=== PATIENT | female | born 1940 | race Caucasian/White ===

== ENCOUNTER 2016-11-14 12:02 | Emergency (ER) | payer MEDICARE, OTHER ==
[~2016-11-14 12:02] MED LIST: CIPR1TAB50 PO
[2016-11-14 12:14] VITALS: BP 142/79; PULSE 78; RESP 16; TEMP 98.3
[2016-11-14 12:27] LABS: BLOOD, URINE NEG (NEG); GLUCOSE,URINE NEG (NEG); KETONE, URINE 15 mg/dL (NEG); NITRITE,URINE NEG (NEG); PH, URINE 5.5 (5.0-8.5)
[2016-11-14 12:33] LABS: URINE COLOR YELLOW (YELLW/STRAW)
[2016-11-14 12:34] LABS: RBC, URINE 0-3 /hpf (0-3); SQUAMOUS EPITHELIAL CELL URINE 0-5 /hpf (0-5); WBC, URINE 0-2 /hpf (0-5)
[2016-11-14 12:35] LABS: COMMENT (UR) CULT NOT INDICATED; CULTURE IF INDICATED CULT NOT INDICATED
--- NOTE | 2016-11-14 12:50 | PD ---
HPI Chief Complaint: GI Complaint Time Seen by Provider: 12:45 Travel History International Travel<30 days: No Contact w/Intl Traveler<30days: No Traveled to known affect area: No History of Present Illness HPI 76-year-old female with history of frequent UTIs, presents to the ER for several days history of vaginal irritation, dysuria, thinks that she has UTI. She denies any fevers, nausea, vomiting, vaginal discharge, or any other symptoms. Modifying Factors: None Associated Signs & Symptoms: Vaginal irritation, dysuria Risk Factors: Frequent UTIs PFSH Past Medical History Arthritis: Yes Blood Disorders: No Depression: Yes Cardiovascular Problems: No Diminished Hearing: No Endocrine: No Genitourinary: Yes (FREQUENT UT'S AND LOWER ABD CRAMPING) Immune Disorder: No Neurologic: No Psychiatric: No Respiratory: Yes (CHILDHOOD ASTHMA) Influenza Vaccination: No ?: Not Past Surgical History Abdominal Surgery: Yes (POLYPS REMOVED FROM COLON) Section: Yes Eye Surgery: Yes (JOSE R CATARACTS) Gynecologic Surgery: Yes () Hysterectomy: Yes Other Surgery: Yes Social History Alcohol Use: Yes (WINE EVERY NIGHT ) Tobacco Use: No Substance Use: No Allergies-Medications (Allergen,Severity, Reaction): Coded Allergies: Cultivated Oat Pollen (Verified Allergy, Mild, nunny nose, 11/14/16) Dust (Verified Allergy, Mild, runny nose, 11/14/16) Reported Meds & Prescriptions Reported Meds & Active Scripts Active Active Prescriptions or Reported Medications Unobtainable Review of Systems Except as stated in HPI: all other systems reviewed are Neg Physical Exam Narrative GENERAL: Well-developed elderly white female patient currently in no acute distress. Awake and oriented 3. SKIN: Focused skin assessment warm/dry. HEAD: Atraumatic. Normocephalic. EYES: Pupils equal and round. No scleral icterus. No injection or drainage. ENT: No nasal bleeding or discharge. Mucous membranes pink and moist. NECK: Trachea midline. No JVD. CARDIOVASCULAR: Regular rate and rhythm. No murmur appreciated. RESPIRATORY: No accessory muscle use. Clear to auscultation. Breath sounds equal bilaterally. GASTROINTESTINAL: Abdomen soft, mild pelvic tenderness without guarding or rebound, nondistended. Hepatic and splenic margins not palpable. Benign. GENITOURINARY: Normal external genitalia without lesions or erythema, notable for significant dryness and atrophy, speculum exam was deferred due to severe atrophy of the vaginal opening and discomfort with exam. Vaginal vault without blood or drainage. MUSCULOSKELETAL: No obvious deformities. No clubbing. No cyanosis. No edema. NEUROLOGICAL: Awake and alert. No obvious cranial nerve deficits. Motor grossly within normal limits. Normal speech. PSYCHIATRIC: Appropriate mood and affect; insight and judgment normal. Data Data Last Documented VS Vital Signs Date Time Temp Pulse Resp B/P Pulse Ox O2 Delivery O2 Flow Rate FiO2 11/14/16 12:14 98.3 78 16 142/79 Orders Urinalysis - C+S If Indicated (11/14/16 12:17) Wet Prep Profile (11/14/16 12:45) Labs Laboratory Tests Test 11/14/16 12:20 Urine Color YELLOW Urine Turbidity CLEAR Urine pH 5.5 Urine Specific [place] 1.009 Urine Protein NEG mg/dL Urine Glucose (UA) NEG mg/dL Urine Ketones 15 mg/dL Urine Occult Blood NEG Urine Nitrite NEG Urine Bilirubin NEG Urine Leukocyte Esterase TRACE Urine RBC 0-3 /hpf Urine WBC 0-2 /hpf Urine Squamous Epithelial 0-5 /hpf Cells Microscopic Urinalysis Comment CULT NOT INDICATED MDM Medical Decision Making Medical Screen Exam Complete: Yes Emergency Medical Condition: Yes Medical Record Reviewed: Yes Differential Diagnosis UTI versus vaginitis Narrative Course UA shows no signs of UTI. However, I suspect that she has some hormonal related changes with significant vaginal dryness and atrophy. At this point, my plan would be to treat her for possible underlying vaginitis and symptomatic relief with lubricants and have her follow-up with PATIENT BILLER regarding this issue. Return for any worsening in symptoms as needed. The plan has discussed with her and she states understanding. Diagnosis Primary Impression: Atrophic vaginitis Med/Other Pt SpecificInfo: Prescription(s) given Scripts Benzocaine-Resorcinol Vaginal (Vagisil Maximum Strength)20-3% Cream1 Inch VAGINAL TID PRN (PAIN) #1 TUBE Ref 0 Prov:Beth Shook MD 11/14/16 Metronidazole (Flagyl)500 Mg Oza246 Mg PO TID 7 Days Ref 0 Prov:Beth Shook MD 11/14/16 Disposition: 01 DISCHARGE HOME Condition: Stable Beth Shook MD Nov 14, 2016 12:50
[2016-11-14] MEDS ORDERED: METR-1 PO (13:10)
[2016-11-14] MEDS ORDERED: [UNRECOGNIZED DRUG - CODE] VAGINAL (13:10)
== END 2016-11-14 13:23 | disposition home or self-care (01) ==
LOC: PHED 12:02
DX: N95.2 Postmenopausal atrophic vaginitis (principal); Z87.440 Personal history of urinary (tract) infections
CPT/HCPCS: 81001; 87210; 99283

== ENCOUNTER 2017-02-09 11:15 | Emergency (ER) | payer MEDICARE, OTHER ==
[~2017-02-09] VITALS: Ht 170.2 cm; Wt 60.8 kg
[~2017-02-09 11:15] MED LIST changes: -CIPR1TAB50 PO; +METR-1 PO; +[UNRECOGNIZED DRUG - CODE] VAGINAL
[2017-02-09 11:18] VITALS: BP 166/77; PULSE 84; RESP 16; TEMP 98.5; O2SAT 97
[2017-02-09] MEDS ORDERED: VITA250T3 PO (11:48)
[2017-02-09] MEDS ORDERED: LEVO88TA2 PO (11:48)
[2017-02-09] MEDS ORDERED: VITA250T25 PO (11:48)
--- NOTE | 2017-02-09 11:54 | PD ---
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 States she gets 1 every year or so. She started having burning urination last night with some increased frequency. Denies any vaginal irritation bleeding discharge or lesions. No nausea vomiting. No fevers or chills. States she has some sort of cystoscopy procedure for UTIs in the past. She's done better since then. No other complaints. History Past Medical History Narrative Medical Hypothyroidism Social History Alcohol Use: Yes (WINE EVERY NIGHT ) Tobacco Use: No Allergies-Medications (Allergen,Severity, Reaction): Coded Allergies: grass pollen (Unverified Allergy, Mild, nunny nose, 02/09/17) house dust (Unverified Allergy, Mild, runny nose, 02/09/17) Reported Meds & Prescriptions Reported Meds & Active Scripts Active Reported Vitamin C (Ascorbic Acid) 250 Mg Tab 250 Mg PO Vitamin B-1 (Thiamine HCl) 250 Mg Tab 250 Mg PO DAILY Levothyroxine (Levothyroxine Sodium) 88 Mcg Tab 88 Mcg PO DAILY Review of Systems Except as stated in HPI: all other systems reviewed are Neg Physical Exam Narrative GENERAL: Well-appearing 76-year-old woman, no acute distress. SKIN: Focused skin assessment warm/dry. HEAD: Atraumatic. Normocephalic. CARDIOVASCULAR: Regular rate and rhythm. No murmur appreciated. RESPIRATORY: No accessory muscle use. Clear to auscultation. Breath sounds equal bilaterally. GASTROINTESTINAL: Abdomen soft, non-tender, nondistended. Hepatic and splenic margins not palpable. MUSCULOSKELETAL: No obvious deformities. Data Data Last Documented VS Vital Signs Date Time Temp Pulse Resp B/P (MAP) Pulse Ox O2 Delivery O2 Flow Rate FiO2 02/09/17 11:18 98.5 84 16 166/77 (106) 97 Orders Orders Urinalysis - C+S If Indicated (02/09/17 11:18) Urine Culture (02/09/17 11:50) Labs Laboratory Tests Test 02/09/17 11:50 Urine Collection Type CLEAN CATCH Urine Color YELLOW Urine Turbidity SLIGHT Urine pH 6.0 Urine Specific [place] 1.019 Urine Protein NEG mg/dL Urine Glucose (UA) NEG mg/dL Urine Ketones NEG mg/dL Urine Occult Blood NEG Urine Nitrite NEG Urine Bilirubin NEG Urine Leukocyte Esterase SMALL Urine WBC 9-14 /hpf Urine Squamous Epithelial Cells 0-5 /hpf Urine Amorphous Sediment FEW Urine Bacteria FEW /hpf Microscopic Urinalysis Comment CULTURE INDICATED Urine Collection Time 1150 MDM Medical Decision Making Medical Screen Exam Complete: Yes Emergency Medical Condition: Yes Interpretation(s) UA with pyuria suggestive of UTI Differential Diagnosis Cystitis, UTI pathology, uterine ovarian pathology, renal lithiasis, appendicitis, other Narrative Course Medical decision making 76-year-old woman with UTI symptoms. We'll check urine, treat if positive. Diagnosis Primary Impression: UTI (urinary tract infection) Additional Instructions: Take antibiotics as prescribed. Follow-up with her primary doctor in the next 2-4 days. Return to the emergency department for any new or worsening symptoms. Med/Other Pt SpecificInfo: Prescription(s) given Scripts Cephalexin (Keflex) 500 Mg Capsule 500 MG PO TID for Infection for 10 Days, CAP 0 Refills Prov: Jeremías Nielsen MD 02/09/17 Disposition: 01 DISCHARGE HOME Condition: Stable Jeremías Nielsen MD Feb 09, 2017 11:54
[2017-02-09 11:57] LABS: BLOOD, URINE NEG (NEG); GLUCOSE,URINE NEG (NEG); KETONE, URINE NEG (NEG); NITRITE,URINE NEG (NEG)
[2017-02-09 12:01] LABS: METHOD OF COLLECTION CLEAN CATCH; URINE COLOR YELLOW (YELLW/STRAW)
[2017-02-09 12:02] LABS: BACTERIA, URINE FEW /hpf; COMMENT (UR) CULTURE INDICATED; COMMENT2 (UR) MUCOUS PRESENT; CULTURE IF INDICATED CULTURE INDICATED; SQUAMOUS EPITHELIAL CELL URINE 0-5 /hpf (0-5)
[2017-02-09] MEDS ORDERED: CEPH-460 PO (12:33)
[2017-02-09 12:48] VITALS: BP 127/65
== END 2017-02-09 12:49 | disposition home or self-care (01) ==
LOC: PHED 11:15
DX: R30.0 Dysuria (principal); E03.9 Hypothyroidism, unspecified; Z87.440 Personal history of urinary (tract) infections
CPT/HCPCS: 81001; 87077; 87086; 87186; 99283

== ENCOUNTER 2017-05-10 13:19 | Emergency (ER) | payer MEDICARE, OTHER ==
[~2017-05-10] VITALS: Ht 167.6 cm; Wt 55.0 kg
[~2017-05-10 13:19] MED LIST changes: +CEPH-460 PO; +LEVO88TA2 PO; -METR-1 PO; +VITA250T25 PO; +VITA250T3 PO; -[UNRECOGNIZED DRUG - CODE] VAGINAL
[2017-05-10 13:35] VITALS: BP 173/83; PULSE 119; RESP 22; TEMP 98.8; O2SAT 97
[2017-05-10 14:31] LABS: AUTOMATED NEUTROPHIL # 7.2 TH/MM3 (1.8-7.7); BASOPHIL % 0.2 % (0.0-2.0); EOSINOPHIL # 0.2 TH/MM3 (0-0.4); EOSINOPHIL % 1.8 % (0.0-4.0); HEMATOCRIT 42.9 % (35.0-46.0); HEMOGLOBIN 14.4 GM/DL (11.6-15.3); LYMPH % 19.3 % (9.0-44.0); MEAN CELL VOLUME 97.3 FL (80.0-100.0); MEAN CORPUSCULAR HEMOGLOBIN 32.7 PG (27.0-34.0); MEAN CORPUSCULAR HGB CONC 33.6 % (32.0-36.0); MEAN PLATELET VOLUME 9.8 FL (7.0-11.0); MONO % 9.7 % (0.0-8.0); PLATELET COUNT 237 TH/MM3 (150-450); RED BLOOD COUNT 4.41 MIL/MM3 (4.00-5.30); RED CELL DISTRIBUTION WIDTH 14.2 % (11.6-17.2); WHITE BLOOD COUNT 10.5 TH/MM3 (4.0-11.0)
[2017-05-10 14:45] LABS: ALBUMIN 4.5 GM/DL (3.4-5.0); AST (GOT) 20 U/L (15-37); BICARBONATE 22.2 MEQ/L (21.0-32.0); BLOOD UREA NITROGEN 12 MG/DL (7-18); CALCIUM 9.2 MG/DL (8.5-10.1); CHLORIDE 103 MEQ/L (98-107); CREATININE 0.96 MG/DL (0.50-1.00); GLOMERULAR FILTRATION RATE 57 ML/MIN (>89); GLUCOSE,RANDOM 140 MG/DL (74-106); SODIUM (NA) 136 MEQ/L (136-145)
[2017-05-10 14:46] LABS: ALT (GPT) 20 U/L (10-53)
[2017-05-10 14:48] LABS: ALKALINE PHOSPHATASE 115 U/L (45-117); TOTAL BILIRUBIN ADULT 0.7 MG/DL (0.2-1.0); TOTAL PROTEIN 8.5 GM/DL (6.4-8.2)
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
== END 2017-05-10 15:28 | disposition home or self-care (01) ==
LOC: NEPD 13:19
DX: R63.0 Anorexia (principal); M19.90 Unspecified osteoarthritis, unspecified site; F32.9 Major depressive disorder, single episode, unspecified; E07.9 Disorder of thyroid, unspecified; Z79.899 Other long term (current) drug therapy
CPT/HCPCS: 80053; 80307; 85025; 99283

== ENCOUNTER 2017-05-21 08:21 | Emergency (ER) | payer MEDICARE, OTHER ==
[~2017-05-21] VITALS: Ht 167.6 cm; Wt 58.0 kg
[2017-05-21 08:33] VITALS: BP 132/80; PULSE 80; RESP 16; TEMP 98; O2SAT 99
[2017-05-21 08:44] LABS: BLOOD, URINE NEG (NEG); GLUCOSE,URINE NEG (NEG); KETONE, URINE 15 mg/dL (NEG); NITRITE,URINE NEG (NEG); PH, URINE 5.5 (5.0-8.5); URINE LEUKOCYTE ESTERASE NEG (NEG)
[2017-05-21 08:59] LABS: BILIRUBIN, URINE NEG (NEG)
[2017-05-21 09:00] LABS: SQUAMOUS EPITHELIAL CELL URINE 0-5 /hpf (0-5); URINE COLOR YELLOW (YELLW/STRAW)
[2017-05-21] MEDS ORDERED: PHEN0.4T PO (09:41)
--- NOTE | 2017-05-21 09:41 | PD ---
HPI Chief Complaint: Complaint Time Seen by Provider: 09:25 Travel History International Travel<30 days: No Contact w/Intl Traveler<30days: No Traveled to known affect area: No History of Present Illness HPI This 76-year-old female is complaining of burning with urination. She has had recurrent urinary tract infections. She is also been diagnosed with interstitial cystitis. She went to [facility]. She describes a urethral dilatation after which she did well for a while. Her symptoms have recurred the last few days. She is not aware of any fever or chills. Denies any external irritation PFSH Past Medical History Hx Anticoagulant Therapy: No Arthritis: Yes Blood Disorders: No Depression: Yes Cardiovascular Problems: No Diabetes: No Diminished Hearing: No Endocrine: No Genitourinary: Yes (frequent UTIs) Immune Disorder: No Implanted Vascular Access Dvce: No Neurologic: No Psychiatric: No Thyroid Disease: Yes ?: Not Past Surgical History Abdominal Surgery: Yes (colon polyps removed) Section: Yes (x 2 ) Eye Surgery: Yes (jude cataracts) Gynecologic Surgery: Yes () Hysterectomy: Yes Tonsillectomy: Yes Other Surgery: Yes Social History Alcohol Use: Yes (WINE EVERY NIGHT ) Tobacco Use: No Substance Use: No Allergies-Medications (Allergen,Severity, Reaction): Coded Allergies: grass pollen (Unverified Allergy, Mild, nunny nose, 02/09/17) house dust (Unverified Allergy, Mild, runny nose, 02/09/17) Reported Meds & Prescriptions Reported Meds & Active Scripts Active Reported Vitamin C (Ascorbic Acid) 250 Mg Tab 250 Mg PO Vitamin B-1 (Thiamine HCl) 250 Mg Tab 250 Mg PO DAILY Levothyroxine (Levothyroxine Sodium) 88 Mcg Tab 88 Mcg PO DAILY Review of Systems General / Constitutional: No: Fever, Chills HENT: No: Headaches Gastrointestinal: No: Nausea, Vomiting Genitourinary: Positive: Dysuria, No: Hematuria Neurologic: No: Weakness, Dizziness Psychiatric: No: Anxiety Endocrine: No: Heat Intolerance Hematologic/Lymphatic: No: Easy Bruising Physical Exam Narrative GENERAL: Well-developed female SKIN: Focused skin assessment warm/dry. HEAD: Atraumatic. Normocephalic. EYES: Pupils equal and round. No scleral icterus. No injection or drainage. ENT: No nasal bleeding or discharge. Mucous membranes pink and moist. NECK: Trachea midline. No JVD. GASTROINTESTINAL: Abdomen soft, non-tender, nondistended. Hepatic and splenic margins not palpable. There is no CVA tenderness MUSCULOSKELETAL: No obvious deformities. No clubbing. No cyanosis. No edema. NEUROLOGICAL: Awake and alert. No obvious cranial nerve deficits. Motor grossly within normal limits. Normal speech. PSYCHIATRIC: Appropriate mood and affect; insight and judgment normal. Data Data Last Documented VS Vital Signs Date Time Temp Pulse Resp B/P (MAP) Pulse Ox O2 Delivery O2 Flow Rate FiO2 05/21/17 08:33 98.0 80 16 132/80 (97) 99 Orders Orders Urinalysis - C+S If Indicated (05/21/17 08:35) Labs Laboratory Tests Test 05/21/17 08:40 Urine Color YELLOW Urine Turbidity CLEAR Urine pH 5.5 Urine Specific [place] 1.021 Urine Protein NEG mg/dL Urine Glucose (UA) NEG mg/dL Urine Ketones 15 mg/dL Urine Occult Blood NEG Urine Nitrite NEG Urine Bilirubin NEG Urine Leukocyte Esterase NEG Urine WBC 3-5 /hpf Urine Squamous Epithelial Cells 0-5 /hpf Microscopic Urinalysis Comment CULT NOT INDICATED MDM Medical Decision Making Medical Screen Exam Complete: Yes Emergency Medical Condition: Yes Medical Record Reviewed: Yes Differential Diagnosis Differential includes UTI, interstitial cystitis, Narrative Course Urine is not consistent with a bacterial infection. Her symptoms may be due to interstitial cystitis a recurrence of stenosis. She does not have a palpable bladder. I'm going to prescribed Pyridium though I have cautioned her that treatment for interstitial cystitis is not very effective. She has seen Dr. Castañeda in the past and he had referred her to [facility]. She may need to go back there Diagnosis Primary Impression: Interstitial cystitis Scripts Phenazopyridine (Pyridium) 100 Mg Tab 100 MG PO Q8HR for Dysuria, #40 TAB 0 Refills Prov: Rashad Galarza MD 05/21/17 Disposition: 01 DISCHARGE HOME Condition: Stable Rashad Galarza MD May 21, 2017 09:41
[2017-05-21] MEDS ORDERED: PHENAZOPYRIDINE HCL 200 MG TAB PO ONE (09:45)
== END 2017-05-21 09:46 | disposition home or self-care (01) ==
LOC: PHEFT 08:21
DX: N30.10 Interstitial cystitis (chronic) without hematuria (principal)
CPT/HCPCS: 81001; 99283